=== PATIENT | male | born 1960 | race Caucasian/White ===

== ENCOUNTER → 2023-09-25 13:49 | Outpatient (REF) | payer OTHER, SELFPAY | LOC: HWRAD 13:49 | PROVIDERS: ATTENDING PHYSICIAN Family Medicine | DX: R35.0 Frequency of micturition (principal) | CPT/HCPCS: 76770 ==

== ENCOUNTER 2023-10-07 02:52 | Emergency (ER) | payer OTHER, SELFPAY ==
[2023-10-07 02:54] VITALS: BP 132/78
[2023-10-07 02:58] VITALS: BMI 26.4
--- NOTE | 2023-10-07 03:01 | ED.GENMED ---
History of Present Illness
<Basilia Remy MD, Resident - Last Filed: 10/07/23 06:07>
General
Chief Complaint: Chest Pain
Time Seen by Provider: 10/07/23 02:57
History of Present Illness
History of Present Illness:
The patient is a 63 yo male with PMH of Anxiety, Celiac dz and GERD presents to ED with chest discomfort. He reported he had this pain about 2 hours ago. He felt this pain when he woke up for bathroom. Reports also feeling some palpitations and
sweating with the pain. He describes his pain as a crunching pain on his sternum and upper abdominal area. Denies radiating pain to his chest, shoulder or back. Also reports some SOB, and feels like he can't get a full breath in. Reports feeling
some lightheaded. Denies syncope, diaphoresis, fever, vomiting, diarrhea, constipation and urinary changes.
Past History
ED Past Medical History: Asthma, GERD, Psychiatric (Nervousness anxiety, panic disorder) and Other (Ischemic colitis); Negative CAD, HTN, Hypercholesterolemia, IDDM, NIDDM or NV
ED Past Surgical History: Appendectomy and Orthopedic; Negative Cardiac
Social History
Tobacco: Non-smoker
Alcohol: Occasional
Drug: None
Personal:
Living: with family
Employment: Employed
Family History
Family History: Negative Early CAD or CAD
If applicable-neuro sx onset
Date of onset of symptoms: 10/07/23
Past History
<Basilia Remy MD, Resident - Last Filed: 10/07/23 06:07>
Past History
ED Past Medical History: Asthma, GERD, Psychiatric (Nervousness anxiety, panic disorder) and Other (Ischemic colitis); Negative CAD, HTN, Hypercholesterolemia, IDDM, NIDDM or NV
ED Past Surgical History: Appendectomy and Orthopedic; Negative Cardiac
Social History
Tobacco: Non-smoker
Alcohol: Occasional
Drug: None
Personal:
Living: with family
Employment: Employed
Family History
Family History: Negative Early CAD or CAD
Phy Exam
<Basilia Remy MD, Resident - Last Filed: 10/07/23 06:07>
General Physical Exam
General Presentation: moderate distress
General age: appears stated age
General Skin: warm
General Mental: alert
General Hydration: appears well hydrated
Cardiovascular Exam
Cardiovascular Exam: regular rate/rhythm, no edema and bradycardia
Pulmonary Exam
Pulmonary Exam: lungs clear, chest non tender, no crackles, no stridor and no wheezing
Gastrointestinal Exam
Gastrointestinal Exam: non distended and tender
Palpation: left upper quadrant: Minimal tenderness (Pain around sternum which radiating down) and right upper quadrant: Minimal tenderness (Pain around sternum which radiating down)
Neurological Exam
Neurological Exam: alert, oriented x3 and no motor deficits
Scores
<Basilia Remy MD, Resident - Last Filed: 10/07/23 06:07>
Heart Score for Chest Pain Patients
Age: >45 - <65 years
Risk Factors: No Risk Factors
Troponin: </= Normal Limit
Heart Score for Chest Pain Patients: 1
Heart Score Risk: 2.5% MACE over next 6 weeks
<Madison Goldman DO - Last Filed: 10/07/23 06:07>
Heart Score for Chest Pain Patients
STEMI patient?: No
History: Slightly or Non-Suspicious
ECG: Normal
Age: >45 - <65 years
Risk Factors: No Risk Factors
Troponin: </= Normal Limit
Heart Score for Chest Pain Patients: 1
Heart Score Risk: 2.5% MACE over next 6 weeks
Course
<Basilia Remy MD, Resident - Last Filed: 10/07/23 06:07>
Orders/Labs/Results
Orders:
Orders
10/07/23 02:55
Electrocardiogram (*1) Urgent
Reason for Study: Chest Pain
EKG- Treatment ONCE
10/07/23 03:03
CMP [Comprehensive Metabolic Panel] Urgent
Complete Blood Count/With Diff Urgent
Lipase Urgent
Comment: ADD ON
Troponin I Urgent
10/07/23 03:05
Add On- LAB Urgent
Tests Added?: Lipase
10/07/23 03:21
Famotidine [Pepcid] 20 mg PO NOW STA
10/07/23 03:56
Abdominal Ltd US [US Abdomen Limited] Urgent
Comment:
Reason For Exam: Epigastric pain
10/07/23 04:08
EKG- Treatment ONCE
10/07/23 04:30
Electrocardiogram (*1) Urgent
Reason for Study: Chest Pain
10/07/23 05:03
Troponin I Urgent
Abnormal Lab Results
10/07/23
03:03
RBC 4.68 L 10^6/uL
(4.70-6.10)
Absolute Monos (auto) 0.7 H 10^3/uL
(0.1-0.6)
Monocytes % 10.2 H %
(1.7-9.3)
Eosinophils % 6.2 H %
(0-6)
Glucose 109 H mg/dl
(70-99)
10/07/23 03:03
10/07/23 03:03
Vital Signs
Initial and Last Documented VS:
Initial Vital Signs
Temp Pulse Resp BP Pulse Ox
97.4 F 62 22 132/78 98
10/07/23 02:54 10/07/23 02:54 10/07/23 02:54 10/07/23 02:54 10/07/23 02:54
Last Documented Vital Signs
Temp Pulse Resp BP Pulse Ox
97.4 F 52 18 130/82 96
10/07/23 02:54 10/07/23 04:00 10/07/23 05:23 10/07/23 05:00 10/07/23 05:23
<Madison Goldman, DO - Last Filed: 10/07/23 06:07>
Orders/Labs/Results
Orders:
Orders
10/07/23 02:55
Electrocardiogram (*1) Urgent
Reason for Study: Chest Pain
EKG- Treatment ONCE
10/07/23 03:03
CMP [Comprehensive Metabolic Panel] Urgent
Complete Blood Count/With Diff Urgent
Lipase Urgent
Comment: ADD ON
Troponin I Urgent
10/07/23 03:05
Add On- LAB Urgent
Tests Added?: Lipase
10/07/23 03:21
Famotidine [Pepcid] 20 mg PO NOW STA
10/07/23 03:56
Abdominal Ltd US [US Abdomen Limited] Urgent
Comment:
Reason For Exam: Epigastric pain
10/07/23 04:08
EKG- Treatment ONCE
10/07/23 04:30
Electrocardiogram (*1) Urgent
Reason for Study: Chest Pain
10/07/23 05:03
Troponin I Urgent
Abnormal Lab Results
10/07/23
03:03
RBC 4.68 L 10^6/uL
(4.70-6.10)
Absolute Monos (auto) 0.7 H 10^3/uL
(0.1-0.6)
Monocytes % 10.2 H %
(1.7-9.3)
Eosinophils % 6.2 H %
(0-6)
Glucose 109 H mg/dl
(70-99)
10/07/23 03:03
10/07/23 03:03
Vital Signs
Initial and Last Documented VS:
Initial Vital Signs
Temp Pulse Resp BP Pulse Ox
97.4 F 62 22 132/78 98
10/07/23 02:54 10/07/23 02:54 10/07/23 02:54 10/07/23 02:54 10/07/23 02:54
Last Documented Vital Signs
Temp Pulse Resp BP Pulse Ox
97.4 F 52 18 130/82 96
10/07/23 02:54 10/07/23 04:00 10/07/23 05:23 10/07/23 05:00 10/07/23 05:23
<Basilia Remy MD, Resident - Last Filed: 10/07/23 06:07>
MDM/Problems Addressed
Differential Diagnosis Includes:
NV, GERD, Gastroenteritis, IBD, Musculoskeletal pain
MDM/Problems Addressed:
ECG, Troponin, CBC, CMP results are unremarkable. Abdominal US was ordered. Patient was given famotidine to address for possible GERD.
Abdominal US: Showed cholelithiasis without cholangitis. The patient was recommended to follow up with a General Surgery physician to address his cholelithiasis.
<Madison Goldman DO - Last Filed: 10/07/23 06:07>
*Radiology
Radiology exam reviewed: radiology read reviewed
*Pulse Oximetry
Patient hypoxic: no
*EKG
Interpreted by ED Provider?: Yes
Interpretation: normal
Comparison EKG: no changes
Rate: normal
Rhythm: sinus
[place]: normal axis
Interval: normal interval
QRS Pattern: normal QRS
Ischemia: no ischemia
*Bend Sorter Interpretation
Rate: normal
Interpretation: normal
Rhythm: sinus
*Critical Care Note
Total Time (30-74mins, 75-104mins- exclusive of procedures): Not Applicable
ED Attending Note
<Basilia Remy MD, Resident - Last Filed: 10/07/23 06:07>
-
Portions of this chart may have been created with voice recognition software.� Occasional wrong word or��sound alike� substitutions may have occurred due to the inherent limitations of voice recognition software.
<Madison Goldman DO - Last Filed: 10/07/23 06:07>
ED Attending Note
Patient seen and examined by attending physician: Yes
I performed the substantive portion of visit, reviewed & personally made and approve the management plan that is documented in note by myself or OFE.: Yes
I performed a history and physical exam of patient and discussed management with resident, I reviewed resident's note and agree with documented findings and plan of care.: Yes
ED Attending Note:
This is a 63-year-old gentleman who has history of celiac disease, GERD, anxiety who presents with somewhat abrupt onset of epigastric, lower substernal chest pain that began around 1:00 this morning after returning from the bathroom and lying down
in bed. Chest pain accompanied with mild nausea, diaphoresis and mild shortness of breath. He denies back pain or neck pain.
He does have history of GERD and admits that current symptoms feel somewhat similar to previous episodes of GERD and he has been evaluated in this ED on several different occasions for similar episodes of chest pain most recently November 2022. On
each occasion unremarkable ED evaluations including negative troponins, negative D-dimer.
He has undergone unremarkable nuclear stress test and echocardiogram January 2018. Unremarkable cardiac catheterization 2010.
During last ED visit November 2022 patient was prescribed a short course of Protonix and admits to resolution of chest pain without recurrence until tonight.
He did not take anything for symptoms at home.
Currently feeling markedly improved, no further chest discomfort but continues with mild epigastric discomfort.
He has not had a fever, no diarrhea nor constipation.
He does note recent issues with his prostate, nocturia, following with a urologist and admits that he has been limiting his oral intake due to nocturia. He was wondering if his current symptoms could be related to dehydration. He has had no
dizziness nor lightheadedness. No palpitations.
63-year-old gentleman appears his stated age, awake and alert, pleasant, appears in no acute distress.
Heart is regular rate and rhythm. No murmur no rub.
Lungs are clear to auscultation. Respirations are easy and nonlabored.
Abdomen is soft, nondistended, minimal tenderness epigastric region with deep palpation only.
Concern for GERD, gastritis, ACS, pancreatitis, other consideration is biliary colic/cholelithiasis.
EKG is similar and unchanged from previous.
Will check labs including LFTs, lipase, troponin.
Will consider abdominal ultrasound.
10/07/2023 0601 AM
Patient is pain-free and comfortable.
Repeat troponin is negative.
Repeat EKG unremarkable and unchanged from previous.
Ultrasound however shows a few gallstones, no evidence of cholecystitis. Normal wall, normal, bile duct.
I suspect patient's acute chest pain tonight especially with some epigastric tenderness on palpation is biliary colic in nature.
Labs are reassuring, no evidence of cholecystitis. And he is pain-free.
Discussed importance of low fat/nonfat diet. Will refer to general surgery for outpatient follow-up.
Return precautions discussed.
Discharge Plan
Departure
Patient Disposition: Home (Routine Discharge)
Patient with high blood pressure during this ER visit?: No
Condition: Good
Discharge Problem:
Cholelithiases
Instructions: Gallstones, Gallstones ED
Prescriptions:
No Action
tamsulosin [Flomax] 0.4 mg Capsule
0.4 mg PO DAILY
Referrals:
Carlos Enrique Traore MD [Active] - Call in 1-3 days for appt
Dustin Jimenez MD [Family Provider] -
Interventions
Interventions:
*Risk Screen - Suicide Last Done: 10/07/23 02:58
*General Assessment Last Done: 10/07/23 02:58
*Neglect/Abuse Screening Last Done: 10/07/23 02:58
ED- Fall Risk Assessment Last Done: 10/07/23 02:58
*ED COVID-19 Vaccine History Last Done: 10/07/23 02:58
ED- Cardiac Assessment Last Done: 10/07/23 02:58
Discharge Date and Time
Print Language: LUX[place]
[2023-10-07 03:03] VITALS: BP 138/79
[2023-10-07 03:11] LABS: % Basophils 0.9 % (0-2); % Eosinophils 6.2 % (0-6); % Immature Granulocytes 0.3 % (0-0.5); % Lymphocytes 35.7 % (20.5-51.1); % Monocytes 10.2 % (1.7-9.3); % Neutrophils 46.7 % (42.2-75.2); Absolute Basophils 0.1 10^3/uL (0-0.2); Absolute Eosinophils 0.4 10^3/uL (0-0.7); Absolute Lymphocytes 2.3 10^3/uL (1.2-3.4); Absolute Monocytes 0.7 10^3/uL (0.1-0.6); Hematocrit 39.7 % (39.0-52.0); Hemoglobin 14.1 g/dL (13.0-18.0); Mean Corp Hgb Conc. 35.5 g/dL (33.0-37.0); Mean Corpuscular Hgb 30.1 pg (27.0-31.0); Mean Corpuscular Volume 84.8 fL (80.0-94.0); Mean Platelet Volume 9.5 fL (7.4-10.4); Nucleated Red Blood Cells % 0 % (-); Platelet Count 247 10^3/uL (130-400); Red Blood Cell Count 4.68 10^6/uL (4.70-6.10); Red Cell Dist. Width 12.5 % (11.5-14.5); White Blood Cell Count 6.5 10^3/uL (4.8-10.8)
[2023-10-07] MEDS: PEPCID 20 MG PO (03:26)
[2023-10-07 03:28] LABS: ALT (SGPT) 19 U/L (0-50); AST (SGOT) 33 U/L (17-59); Albumin 4.4 g/dl (3.5-5.0); Alkaline Phosphatase 67 U/L (38-126); Blood Urea Nitrogen 14 mg/dl (9-20); Calcium 9.2 mg/dl (8.4-10.2); Carbon Dioxide 27 mmol/L (22-30); Chloride 105 mmol/L (98-107); Estimated Creatinine Clearance 65 ml/min; Glucose 109 mg/dl (70-99); Lipase 108 U/L (23-300); Potassium 4.2 mmol/L (3.5-5.1); Sodium 141 mmol/L (135-145); Total Bilirubin 0.6 mg/dl (0.2-1.3); Total Protein 6.7 g/dl (6.3-8.2); eGFR > 60.00
[2023-10-07 03:43] LABS: Troponin I < 0.012 ng/ml
[2023-10-07 04:00] VITALS: BP 130/75
[2023-10-07 05:00] VITALS: BP 130/82
[2023-10-07 05:50] LABS: Troponin I < 0.012 ng/ml
[2023-10-07 06:05] VITALS: BP 128/74
== END 2023-10-07 06:11 | disposition home or self-care (01) ==
LOC: EMR 02:52
PROVIDERS: EMERGENCY PHYSICIAN Emergency Medicine; FAMILY PHYSICIAN Family Medicine
DX: K80.20 Calculus of gallbladder without cholecystitis without obstruction (principal); K21.9 Gastro-esophageal reflux disease without esophagitis; F41.9 Anxiety disorder, unspecified
CPT/HCPCS: 99285; 76705; 80053; 83690; 84484; 85025; 93005

== ENCOUNTER 2023-12-08 06:47 | Day surgery (SDC) | payer OTHER, SELFPAY ==
[2023-11-25 09:38] VITALS: BMI 25.1
[2023-12-08] VITALS (11 sets, daily range): BP systolic 116–168; BP diastolic 63–78; BMI 25.1
[2023-12-08] MEDS: IC GREEN 2.5 MG IV (12:27)
[2023-12-08] MEDS: TYLENOL 1000 MG PO (12:34)
--- NOTE | 2023-12-08 14:22 | PTCARENOTE ---
Report given to Roya DOWNING at 1422.
--- NOTE | 2023-12-08 15:59 | OR.RPT ---
Operative Report
Operative Report
Primary Surgeon: Dontrell
Assisting: Natalie JOHNSON
Pre-op Diagnosis: Biliary colic
Post-op Diagnosis: Chronic cholecystitis
Procedure Performed: Robot assisted laparoscopic cholecystectomy
Anesthesia Type: GETA
Specimen / Cultures: Gallbladder
Estimated Blood Loss: 5cc
Complications: None immediate
Operative Findings: Floppy, softly distended gallbladder with mild surrounding fibrosis and thin omental adhesions
Date of Surgery:� 12/08/23
Indications: This 63M developed right upper quadrant pain. Work-up showed gallstones, normal liver enzymes and no ductal dilation. Laparoscopic cholecystectomy with robotic assist was elected.
Description of procedure: The patient was placed on the operating table in the supine position. General anesthesia was induced. A time-out was completed verifying correct patient, procedure, site, positioning, and special equipment prior to
beginning this procedure. An orogastric tube was placed. The abdomen was prepped and draped in the usual sterile fashion. A stab incision was made in left upper quadrant and the Veress needle was inserted. Proper position was confirmed by aspiration
and saline meniscus test. The abdomen was insufflated with carbon dioxide to a pressure of 12mmHg. The patient tolerated insufflation well.
A 8mm trocar was then inserted above the umbilicus. The laparoscope was inserted and the abdomen inspected. No injuries from initial trocar placement or Veress needle insertion were noted. Additional 8mm trocars were then inserted in the following
locations: two in the right lower quadrant and to the left of the umbilicus and just above. The abdomen was inspected and no abnormalities were found. The table was placed in the reverse Trendelenburg position with the right side up. The dome of the
gallbladder was grasped with an atraumatic grasper and retracted over the dome of the liver. Thin omental adhesions were carefully taken down with blunt dissection and hook cautery. The infundibulum was then grasped with an atraumatic grasper and
retracted toward the right lower quadrant. This maneuver exposed Calot�s triangle. The peritoneum overlying the gallbladder infundibulum was then incised and the cystic duct and cystic artery identified and circumferentially dissected so that a
clear view of the liver was achieved through a window between the cystic duct an cystic artery. At this time, the only two structures going into the gallbladder were the cystic artery and cystic duct. The CBD was identified with ICG and protected.
The cystic duct was then doubly clipped and divided. The cystic artery was controlled with bipolar and divided. The gallbladder was then dissected from its peritoneal attachments by electrocautery. The gallbladder was removed using an endoscopic
retrieval bag placed through the umbilical port. The gallbladder was passed off the table as a specimen. The gallbladder fossa was closely inspected. There was no evidence of bleeding from the gallbladder fossa or cystic artery or leakage of the
bile from the cystic duct stump. The umbilical trocar site was closed at the fascial level with 2-0 PDS. Secondary trocars were removed under direct vision and noted to be hemostatic. The abdomen was allowed to collapse. The skin was closed with
subcuticular sutures of 4-0 monocryl and topical skin adhesive. The orogastric tube was removed.
The patient tolerated the procedure well and was taken to the postanesthesia care unit in stable condition.
The assistance of Natalie JOHNSON was required due to the complexity of the procedure. During the procedure she assisted with retraction, resection, and closure of the wound.
[2023-12-08] MEDS: DILAUDID 0.25 MG IV ×2 (16:33→16:58)
[2023-12-08] MEDS: ZOFRAN 4 MG IV (18:06)
== END 2023-12-08 19:15 | disposition home or self-care (01) ==
LOC: SDS 06:47
PROVIDERS: ATTENDING PHYSICIAN Surgery; FAMILY PHYSICIAN Family Medicine
DX: K80.10 Calculus of gallbladder with chronic cholecystitis without obstruction (principal); K90.0 Celiac disease
CPT/HCPCS: 47562; 88304; 93005

== ENCOUNTER 2023-12-12 15:41 | Emergency (ER) | payer OTHER, SELFPAY ==
[2023-12-12 15:44] VITALS: BP 159/81
[2023-12-12 16:07] LABS: % Basophils 0.5 % (0-2); % Eosinophils 2.3 % (0-6); % Immature Granulocytes 0.3 % (0-0.5); % Lymphocytes 28.8 % (20.5-51.1); % Monocytes 9.9 % (1.7-9.3); % Neutrophils 58.2 % (42.2-75.2); Absolute Eosinophils 0.2 10^3/uL (0-0.7); Absolute Lymphocytes 2.1 10^3/uL (1.2-3.4); Absolute Monocytes 0.7 10^3/uL (0.1-0.6); Absolute Neutrophils 4.2 10^3/uL (1.4-6.5); Hematocrit 39.9 % (39.0-52.0); Hemoglobin 14.3 g/dL (13.0-18.0); Mean Corp Hgb Conc. 35.8 g/dL (33.0-37.0); Mean Corpuscular Hgb 29.5 pg (27.0-31.0); Mean Corpuscular Volume 82.4 fL (80.0-94.0); Mean Platelet Volume 9.3 fL (7.4-10.4); Nucleated Red Blood Cells % 0 % (-); Platelet Count 302 10^3/uL (130-400); Red Blood Cell Count 4.84 10^6/uL (4.70-6.10); White Blood Cell Count 7.3 10^3/uL (4.8-10.8)
[2023-12-12 16:18] LABS: ALT (SGPT) 25 U/L (0-50); AST (SGOT) 31 U/L (17-59); Albumin 4.5 g/dl (3.5-5.0); Alkaline Phosphatase 64 U/L (38-126); Blood Urea Nitrogen 16 mg/dl (9-20); Calcium 9.2 mg/dl (8.4-10.2); Carbon Dioxide 25 mmol/L (22-30); Chloride 105 mmol/L (98-107); Glucose 113 mg/dl (70-99); Potassium 3.8 mmol/L (3.5-5.1); Sodium 143 mmol/L (135-145); Total Bilirubin 0.6 mg/dl (0.2-1.3); Total Protein 7.1 g/dl (6.3-8.2); eGFR > 60.00
[2023-12-12 17:40] VITALS: BP 126/80
[2023-12-12 18:00] VITALS: BP 141/82
[2023-12-12] MEDS: NSS 1000 IV (18:42)
--- NOTE | 2023-12-12 18:47 | ED.GENMED ---
History of Present Illness
General
Chief Complaint: Abdominal Symptoms
Time Seen by Provider: 12/12/23 17:34
History of Present Illness
History of Present Illness:
63-year-old male status post cholecystectomy 5 days ago presenting for lightheadedness and fatigue. Patient reports uncomplicated postop course. Since surgery, has been feeling generally weak and fatigued. He took a mile walk today and generally
felt unwell. Denies associate abdominal pain. Denies vomiting. Denies changes in urination. Denies fever. Denies chest pain or difficulty breathing. Denies any fall or syncope. Denies additional acute medical complaints
Past History
Past History
ED Past Medical History: Asthma, GERD, Psychiatric (Nervousness anxiety, panic disorder) and Other (Ischemic colitis); Negative CAD, HTN, Hypercholesterolemia, IDDM, NIDDM or [place]
ED Past Surgical History: Appendectomy and Orthopedic; Negative Cardiac
Social History
Tobacco: Non-smoker
Alcohol: Occasional
Drug: None
Personal:
Living: with family
Employment: Employed
Family History
Family History: Negative Early CAD or CAD
Phy Exam
Physical Exam
Physical Exam:
General: Well-appearing, no clinical signs of dehydration, nontoxic and in no acute distress
HEENT: protecting airway
Neck: appears supple
CV: Normal heart rate, regular rhythm
Resp: No accessory muscle use, no increased work of breathing
Abd: Soft and non-distended, no tenderness to palpation, healing surgical scars, clean/dry/intact
Extremities: No deformities, no swelling, no erythema
Neuro: alert, no focal neurologic deficit
: deferred
Rectal: deferred
Psych: Normal affect
Skin: Intact
Course
Orders/Labs/Results
Orders:
Orders
12/12/23 15:52
Complete Blood Count/With Diff Urgent
Comprehensive Metabolic Panel Urgent
12/12/23 18:17
0.9% Sodium Chloride 1000 ml [Nss] 1,000 ml IV BOLUS
12/12/23 18:41
COVID-19 Antigen Urgent
Source: Nasal Swab
Urinalysis Reflex To Culture Urgent
Date Specimen was Collected: 12/12/23
Time Specimen was Collected: 18:32
Abnormal Lab Results
12/12/23
15:52
Absolute Monos (auto) 0.7 H 10^3/uL
(0.1-0.6)
Monocytes % 9.9 H %
(1.7-9.3)
Glucose 113 H mg/dl
(70-99)
12/12/23 15:52
12/12/23 15:52
Vital Signs
Initial and Last Documented VS:
Initial Vital Signs
Temp Pulse Resp BP Pulse Ox
98 F 69 18 159/81 97
12/12/23 15:44 12/12/23 15:44 12/12/23 15:44 12/12/23 15:44 12/12/23 15:44
Last Documented Vital Signs
Temp Pulse Resp BP Pulse Ox
98 F 66 16 138/86 100
12/12/23 15:44 12/12/23 20:00 12/12/23 20:00 12/12/23 20:00 12/12/23 19:45
MDM/Problems Addressed
MDM/Problems Addressed:
63-year-old male presenting status post cholecystectomy on Friday with generalized weakness and fatigue. Vital signs are normal.
On exam patient is well-appearing, no acute distress, nontoxic. Overall benign examination, patient is nontoxic in appearance. No clinical signs of severe dehydration. Abdominal exam without focal tenderness, soft and nondistended, healing
incisions. Suspect some mild deconditioning from recent surgical procedure. Lower suspicion for systemic process. Patient had screening laboratory analysis prior to my assessment, normal, no leukocytosis. Will also send a COVID swab and a
urinalysis. Will administer IV fluids in the setting of mild dehydration.
20:40 - COVID-negative and urine without sign of infection. On reassessment patient remains stable. Feel stable for discharge. Return precautions discussed and patient verbalized understanding
*Critical Care Note
Total Time (30-74mins, 75-104mins- exclusive of procedures): Not Applicable
ED Attending Note
-
Portions of this chart may have been created with voice recognition software.� Occasional wrong word or��sound alike� substitutions may have occurred due to the inherent limitations of voice recognition software.
Discharge Plan
Departure
Prescriptions:
No Action
ibuprofen [Advil] 200 mg Tablet
200 mg PO Q6H PRN (Reason: headache)
oxycodone-acetaminophen [oxycodone-acetaminophen] 5-325 mg tablet
1 - 2 tab PO Q4HPRN PRN (Reason: moderate to severe pain) Qty: 12 0RF
Referrals:
Dustin Jimenez MD [Family Provider] -
Interventions
Interventions:
*Risk Screen - Suicide Last Done: 12/12/23 15:44
*General Assessment Last Done: 12/12/23 15:44
*Neglect/Abuse Screening Last Done: 12/12/23 15:44
*ED COVID-19 Vaccine History Last Done: 12/12/23 18:46
DT-[id number]-Xpaqyqfdeo Assessment Last Done: 12/12/23 18:02
Discharge Date and Time
Print Language: ARMEN[place]
[2023-12-12 19:00] VITALS: BP 139/81
[2023-12-12 19:00] LABS: Urine Albumin Negative (Neg - Trace); Urine Bilirubin Negative (Negative); Urine Character Clear (Clear); Urine Color Yellow; Urine Glucose Negative (Negative); Urine Ketone Negative (Negative); Urine Leukocyte Negative (Negative); Urine Nitrite Negative (Negative); Urine Occult Blood Negative (Negative); Urine Urobilinogen Negative (Neg - 1+)
[2023-12-12 19:14] LABS: COVID-19 Antigen Negative (Negative)
[2023-12-12 20:00] VITALS: BP 138/86
[2023-12-12 20:57] VITALS: BP 126/82
== END 2023-12-12 21:09 | disposition home or self-care (01) ==
LOC: EMR 15:41
PROVIDERS: Student in an Organized Health Care Education/Training Program; EMERGENCY PHYSICIAN Student in an Organized Health Care Education/Training Program; FAMILY PHYSICIAN Family Medicine
DX: R42 Dizziness and giddiness (principal); R53.1 Weakness; R53.83 Other fatigue; E86.0 Dehydration; Z11.52 Encounter for screening for COVID-19; K21.9 Gastro-esophageal reflux disease without esophagitis; J45.909 Unspecified asthma, uncomplicated; F41.9 Anxiety disorder, unspecified; F41.0 Panic disorder [episodic paroxysmal anxiety]; K55.9 Vascular disorder of intestine, unspecified; Z90.49 Acquired absence of other specified parts of digestive tract; Z98.890 Other specified postprocedural states
CPT/HCPCS: 99284; 96360; 80053; 81003; 85025; 87811

== ENCOUNTER → 2024-01-16 09:00 | Outpatient (REF) | payer OTHER, SELFPAY | LOC: MRI 09:00 | PROVIDERS: ATTENDING PHYSICIAN Surgery; FAMILY PHYSICIAN Family Medicine | DX: K80.50 Calculus of bile duct without cholangitis or cholecystitis without obstruction (principal) | CPT/HCPCS: 74181 ==

== ENCOUNTER → 2024-02-24 12:10 | Outpatient (REF) | payer OTHER, SELFPAY | LOC: HWRAD 12:10 | PROVIDERS: ATTENDING PHYSICIAN Family Medicine | DX: M54.6 Pain in thoracic spine (principal); R68.89 Other general symptoms and signs | CPT/HCPCS: 71046 ==

== ENCOUNTER 2024-02-28 09:57 | Emergency (ER) | payer OTHER, SELFPAY ==
[2024-02-28 10:01] VITALS: BP 152/87
[2024-02-28 10:33] LABS: % Basophils 0.7 % (0-2); % Eosinophils 3.4 % (0-6); % Immature Granulocytes 0.9 % (0-0.5); % Lymphocytes 22.2 % (20.5-51.1); % Monocytes 8.8 % (1.7-9.3); Absolute Eosinophils 0.2 10^3/uL (0-0.7); Absolute Immature Granulocytes 0.1 10^3/uL (0-0.05); Absolute Lymphocytes 1.3 10^3/uL (1.2-3.4); Absolute Monocytes 0.5 10^3/uL (0.1-0.6); Absolute Neutrophils 3.7 10^3/uL (1.4-6.5); Hematocrit 41.7 % (39.0-52.0); Hemoglobin 14.4 g/dL (13.0-18.0); Mean Corp Hgb Conc. 34.5 g/dL (33.0-37.0); Mean Corpuscular Volume 86.9 fL (80.0-94.0); Mean Platelet Volume 9.5 fL (7.4-10.4); Nucleated Red Blood Cells % 0 % (-); Platelet Count 259 10^3/uL (130-400); Red Cell Dist. Width 12.1 % (11.5-14.5); White Blood Cell Count 5.8 10^3/uL (4.8-10.8)
[2024-02-28 10:47] LABS: ALT (SGPT) 17 U/L (0-50); AST (SGOT) 26 U/L (17-59); Albumin 4.4 g/dl (3.5-5.0); Alkaline Phosphatase 71 U/L (38-126); Blood Urea Nitrogen 13 mg/dl (9-20); Calcium 9.1 mg/dl (8.4-10.2); Carbon Dioxide 25 mmol/L (22-30); Chloride 105 mmol/L (98-107); Glucose 110 mg/dl (70-99); Potassium 4.6 mmol/L (3.5-5.1); Sodium 141 mmol/L (135-145); Total Bilirubin 1.1 mg/dl (0.2-1.3); Total Protein 6.9 g/dl (6.3-8.2); eGFR > 60.00
[2024-02-28 11:16] LABS: Troponin I < 0.012 ng/ml
--- NOTE | 2024-02-28 12:26 | ED.GENMED ---
History of Present Illness
<Kiersten Frederick PA-C - Last Filed: 02/28/24 22:14>
General
Chief Complaint: Breathing Problem
Source: patient
Exam Limitations: none
Time Seen by Provider: 02/28/24 11:58
Nursing documentation reviewed up to this point in time: agreed with
History of Present Illness
History of Present Illness:
Patient is a 63-year-old male presenting to the emergency department for evaluation of ongoing fatigue and elevated D-dimer on outpatient lab work. Patient states that he has had worsening fatigue and dyspnea on exertion over the past few months.
However�he does feel yesterday it was worse and he was having a lot of shortness of breath with walking upstairs. He was unable to complete his workout. Patient states he has been very lightheaded, as well. Patient has been following with his
primary care provider regarding the symptoms and was found to have a 'borderline' D-dimer recommended to have a CT scan of his chest to rule out a pulmonary embolism.
Patient denies any fevers, cough, or chest pain. Patient denies any abdominal pain, back pain, numbness/tingling. Patient denies any urinary symptoms.
Of note�patient states the symptoms seem to start after he had his gallbladder removed in November with Dr. Jon. He has had a follow-up MRI with general surgery in December which showed no complications.
Past History
<Kiersten Frederick PA-C - Last Filed: 02/28/24 22:14>
Past History
ED Past Medical History: Asthma, GERD, Psychiatric (Nervousness anxiety, panic disorder) and Other (Ischemic colitis); Negative CAD, HTN, Hypercholesterolemia, IDDM, NIDDM or [place]
ED Past Surgical History: Appendectomy and Orthopedic; Negative Cardiac
Social History
Tobacco: Non-smoker
Alcohol: Occasional
Drug: None
Personal:
Living: with family
Employment: Employed
Family History
Family History: Negative Early CAD or CAD
Review of Systems
<Kiersten Frederick PA-C - Last Filed: 02/28/24 22:14>
Review of Systems
Allergies reviewed?: Yes
All Other Systems: ROS reviewed and negative except as documented in HPI and ROS
Phy Exam
<Kiersten Frederick PA-C - Last Filed: 02/28/24 22:14>
Physical Exam
Physical Exam:
Vitals: Hypertensive on arrival although improved by my assessment. Afebrile
General: Patient is well appearing, no acute distress. Nontoxic appearing
Skin: Warm and dry, no rashes or lesions
Head: Normocephalic, atraumatic
Eyes: Sclera nonicteric. EOMs intact. No nystagmus.
Throat: Protecting airway
Neck: Normal ROM, no cervical spine tenderness, no meningismus
Cardiac: Regular rate and rhythm, no murmurs.
Pulm: Normal respiratory effort, no wheezes, rales, rhonchi heard on exam. O2 saturation 100 on room air
Abdomen: Abdomen soft. No abdominal tenderness.
Extremities: No evidence of cyanosis or edema. Negative Homans' sign bilaterally.
Neuro: AAOx3. Grossly intact.
Psychiatric: Normal affect.
Scores
<Kiersten Frederick PA-C - Last Filed: 02/28/24 22:14>
Heart Failure Risk
Heart Failure Risk Score: Not Applicable
Course
<Kiersten Frederick PA-C - Last Filed: 02/28/24 22:14>
Orders/Labs/Results
Orders:
Orders
02/28/24 10:06
ECG [Electrocardiogram (*1)] Urgent
Reason for Study: Shortness of Breath
CT Chest PE Study Urgent
Comment:
Reason For Exam: SOB, dizziness
02/28/24 10:07
EKG- Treatment ONCE
02/28/24 10:24
Complete Blood Count/With Diff Urgent
Comprehensive Metabolic Panel Urgent
Monotest Urgent
Comment: ADD ON
Troponin I Urgent
02/28/24 13:14
Add On- LAB Urgent
Tests Added?: pro-bnp
Orthostatic VS- Treatment ONCE
02/28/24 13:26
NT-proBNP Urgent
Comment: ADD ON
Troponin I Urgent
Urinalysis Reflex To Culture Urgent
Date Specimen was Collected: 02/28/24
Time Specimen was Collected: 13:24
02/28/24 14:40
Add On- LAB Urgent
Tests Added?: monospot
02/28/24 14:49
COVID-19 Antigen Urgent
Source: Nasal Swab
Influenza A+B Rapid Molecular Urgent
CARLOS MANUEL Source: Nasal Swab
Specimen Description:
Abnormal Lab Results
02/28/24
10:24
Abs Immat Gran (auto) 0.1 H 10^3/uL
(0-0.05)
Immature Gran % 0.9 H %
(0-0.5)
Glucose 110 H mg/dl
(70-99)
Monoscreen Positive A
(Negative)
02/28/24 10:24
02/28/24 10:24
Vital Signs
Initial and Last Documented VS:
Initial Vital Signs
Temp Pulse Resp BP Pulse Ox
97.6 F 66 20 152/87 100
02/28/24 10:01 02/28/24 10:01 02/28/24 10:01 02/28/24 10:01 02/28/24 10:01
Last Documented Vital Signs
Temp Pulse Resp BP Pulse Ox
97.6 F 63 18 105/71 100
02/28/24 10:01 02/28/24 13:15 02/28/24 13:15 02/28/24 13:15 02/28/24 13:15
<Ellis Tejeda MD - Last Filed: 02/28/24 14:44>
Orders/Labs/Results
Orders:
Orders
02/28/24 10:06
ECG [Electrocardiogram (*1)] Urgent
Reason for Study: Shortness of Breath
CT Chest PE Study Urgent
Comment:
Reason For Exam: SOB, dizziness
02/28/24 10:07
EKG- Treatment ONCE
02/28/24 10:24
Complete Blood Count/With Diff Urgent
Comprehensive Metabolic Panel Urgent
Monotest Urgent
Comment: ADD ON
Troponin I Urgent
02/28/24 13:14
Add On- LAB Urgent
Tests Added?: pro-bnp
Orthostatic VS- Treatment ONCE
02/28/24 13:26
NT-proBNP Urgent
Comment: ADD ON
Troponin I Urgent
Urinalysis Reflex To Culture Urgent
Date Specimen was Collected: 02/28/24
Time Specimen was Collected: 13:24
02/28/24 14:40
Add On- LAB Urgent
Tests Added?: monospot
02/28/24 14:49
COVID-19 Antigen Urgent
Source: Nasal Swab
Influenza A+B Rapid Molecular Urgent
CARLOS MANUEL Source: Nasal Swab
Specimen Description:
Abnormal Lab Results
02/28/24
10:24
Abs Immat Gran (auto) 0.1 H 10^3/uL
(0-0.05)
Immature Gran % 0.9 H %
(0-0.5)
Glucose 110 H mg/dl
(70-99)
Monoscreen Positive A
(Negative)
02/28/24 10:24
02/28/24 10:24
Vital Signs
Initial and Last Documented VS:
Initial Vital Signs
Temp Pulse Resp BP Pulse Ox
97.6 F 66 20 152/87 100
02/28/24 10:01 02/28/24 10:01 02/28/24 10:01 02/28/24 10:01 02/28/24 10:01
Last Documented Vital Signs
Temp Pulse Resp BP Pulse Ox
97.6 F 63 18 105/71 100
02/28/24 10:01 02/28/24 13:15 02/28/24 13:15 02/28/24 13:15 02/28/24 13:15
<Kiersten Frederick PA-C - Last Filed: 02/28/24 22:14>
MDM/Problems Addressed
Differential Diagnosis Includes:
Not limited to: Dehydration, viral illness, postoperative complication, pulmonary embolism, pneumonia, pleural effusion, congestive heart failure, acute coronary syndrome, etc.
MDM/Problems Addressed:
63-year-old male presenting with few weeks of fatigue and worsening dyspnea. Did have cholecystectomy a few months ago. No history of fevers, chest pain, cough. Outpatient lab work showed elevated dimer and sent to rule out PE. On exam�patient
is well-appearing, no apparent distress. He is stable vital signs and is afebrile. Heart regular rate and rhythm. Lungs are clear bilaterally. No clinical evidence of DVT on exam. Abdomen soft and nontender. No focal neurologic deficits. Labs
initiated in triage without any clinically significant abnormalities. Troponin is undetectable. EKG shows normal sinus rhythm without any acute ischemic changes. Differential somewhat broad although given elevated dimer will check CTA chest to
rule out pulmonary embolism. Will add on proBNP and trend troponin.
Update: Urine without any signs of infection. Repeat troponin undetectable�very low suspicion for acute coronary syndrome. proBNP of less than 20. CT chest without any acute abnormalities. Patient very well-appearing, no apparent distress. Will
add on viral swabs flu, COVID, and mono. Low suspicion for emergent cardio/pulmonary process. Feel patient is stable for discharge with primary care follow-up. Very close return precautions discussed.
Chronic conditions affecting care:
N/A
Acute Exacerbation and/or Progression of Chronic Illness:
N/A
<Kiersten Frederick PA-C - Last Filed: 02/28/24 22:14>
*Radiology
Radiology exam reviewed: preliminary read by ED provider (Reviewed by -page shaver PE) and radiology read reviewed
*Pulse Oximetry
Patient hypoxic: no
*EKG
Interpreted by ED Provider?: Yes
EKG Intrepretation Date: 02/28/24
Interpretation: normal
Comparison EKG: changes noted
Heart Rate: 62
Rate: normal
Rhythm: sinus
[place]: normal axis
Interval: normal interval
QRS Pattern: normal QRS
Ischemia: no ischemia
*Systems Programmer Analyst Interpretation
Rate: Systems Programmer Analyst- N/A
*Critical Care Note
Total Time (30-74mins, 75-104mins- exclusive of procedures): Not Applicable
<Kiersten Frederick PA-C - Last Filed: 02/28/24 22:14>
Update Note
Update Note:
Update: Monotest positive. Did call discussed with patient. Advise follow-up with primary care, supportive care. Avoid contact sports. Patient expressed understanding will follow close with PCP
ED Attending Note
<Kiersten Frederick PA-C - Last Filed: 02/28/24 22:14>
-
Portions of this chart may have been created with voice recognition software.� Occasional wrong word or��sound alike� substitutions may have occurred due to the inherent limitations of voice recognition software.
<Ellis Tejeda MD - Last Filed: 02/28/24 14:44>
ED Attending Note
Patient seen and examined by attending physician: Yes
ED Attending Note:
I have seen and evaluated the patient with a [id number] encounter. I have spoken to the advance practicer provider and involved in the medical history, the physical exam, medical decision making.
Evaluation and management service: agree unless noted differently below.
Results interpretation: agree unless noted differently below.
Focused HPI: 63-year-old male with history as documented presents to the emergency room for evaluation after outpatient labs showed slightly elevated D-dimer. Patient had surgery with Dr. Jon in November for cholecystitis. He says that he
initially had uncomplicated postoperative course for the past week or 2 but after about 2 weeks he started to have pain in his right flank/ribs. He says that he followed up with the surgeon initially was thought to be postoperative pain he at one
point had a follow-up MRI which was unremarkable. He says pain over the holidays faded a bit but he started to have increased fatigue. He says over the past week fatigue has been markedly increased and associated with mild dizziness. He says he
has some mild shortness of breath especially when he is very active. He says 'it almost feels like I have a virus.' He denies any chest pain. He denies any other complaints. He has been following along with his primary doctor and part of his
outpatient workup included a D-dimer which was elevated and so he was advised to go to the ER for follow-up.
Physical exam: 63-year-old well-appearing male in no acute distress. Hypertensive in triage normalized by my assessment rest of vitals normal. He has no cardiac rubs gallops or murmurs and his lungs are clear to auscultation bilaterally. He has
no JVD. He has no edema in his extremities. His extremities are warm and well-perfused.
Medical Decision Makin-year-old male presents for evaluation after outpatient testing showed positive D-dimer�she has been dealing with postoperative right flank pain which actually is improved recently; he is also dealing with very significant
fatigue for weeks over the past week this has increased and has been associated with some mild shortness of breath. Labs sent off here including a CBC and a CMP which were unremarkable. Troponin serially undetectable. proBNP completely negative.
Urinalysis negative. CTA chest negative for any acute pathology. EKG shows sinus rhythm. Low suspicion for emergent pathology at this point in time. He does admit he has been eating slightly less since his surgery I wonder if this could be
playing a factor, he may have over the past week developed a virus as well as he says this does feel similar over the past week to prior viral illnesses. He is already well established with his primary doctor and will continue to follow-up as an
outpatient.
Discharge Plan
Departure
Patient Disposition: Home (Routine Discharge)
Date of Disposition: 02/28/24
Time of Disposition: 14:41
Patient with high blood pressure during this ER visit?: No
Condition: Good
Covid-19: Not Applicable
Discharge Problem:
Fatigue, MANNING (dyspnea on exertion), Lightheadedness
Instructions: Fatigue (DC), Shortness of Breath (Dyspnea) (DC)
Prescriptions:
No Action
ibuprofen [Advil] 200 mg Tablet
200 mg PO Q6H PRN (Reason: headache)
oxycodone-acetaminophen [oxycodone-acetaminophen] 5-325 mg tablet
1 - 2 tab PO Q4HPRN PRN (Reason: moderate to severe pain) Qty: 12 0RF
Referrals:
Dustin Jimenez MD [Family Provider] -
Activity Restrictions/Additional Instructions:
RETURN TO THE EMERGENCY DEPARTMENT WITH ANY FEVERS, CHEST PAIN, WORSENING SHORTNESS OF BREATH, SIGNIFICANT WEAKNESS, SEVERE ABDOMINAL PAIN, WORSENING IN CURRENT SYMPTOMS, OR ANY OTHER CONCERNS
-As discussed�your CT scan performed in the emergency department showed no evidence of a blood clot or other acute abnormality in your chest.
-It is important stay well-hydrated. Get plenty of rest.
-We did send a few viral testing and we will contact you if these are positive
-Follow-up with your primary care provider for further evaluation/management
Monitor your symptoms closely and return to the emergency department any acute worsening/new symptoms or any other concerns.
Interventions
Interventions:
*Risk Screen - Suicide Last Done: 02/28/24 12:30
*General Assessment Last Done: 02/28/24 12:30
*Neglect/Abuse Screening Last Done: 02/28/24 12:30
ED- Fall Risk Assessment Last Done: 02/28/24 12:30
*ED COVID-19 Vaccine History Last Done: 02/28/24 12:30
*Nursing Disposition Last Done: 02/28/24 15:15
ED- Cardiac Assessment Last Done: 02/28/24 12:30
ED- Pulmonary Assessment Last Done: 02/28/24 12:30
Discharge Date and Time
Discharge Date/Time: 02/28/24 15:15
Print Language: CITIZEN OF [place]
[2024-02-28 13:15] VITALS: BP 105/71
[2024-02-28 13:48] LABS: Urine Albumin Trace (Neg - Trace); Urine Bilirubin Negative (Negative); Urine Character Clear (Clear); Urine Color Yellow; Urine Glucose Negative (Negative); Urine Ketone Negative (Negative); Urine Leukocyte Negative (Negative); Urine Nitrite Negative (Negative); Urine Occult Blood Negative (Negative); Urine Urobilinogen Negative (Neg - 1+)
[2024-02-28 14:00] VITALS: BP 128/78; BP 129/95; BP 133/72; PULSE 63; PULSE 67; PULSE 70
[2024-02-28 14:07] LABS: Troponin I < 0.012 ng/ml
[2024-02-28 14:25] LABS: NT-proBNP < 20.0 pg/ml
[2024-02-28 15:25] LABS: COVID-19 Antigen Negative (Negative)
[2024-02-28 15:30] LABS: Monotest Positive (Negative)
== END 2024-02-28 15:15 | disposition home or self-care (01) ==
LOC: EMR 09:57
PROVIDERS: Emergency Medicine; Physician Assistant; EMERGENCY PHYSICIAN Emergency Medicine; FAMILY PHYSICIAN Family Medicine
DX: R53.83 Other fatigue (principal); R06.09 Other forms of dyspnea; R42 Dizziness and giddiness; J45.909 Unspecified asthma, uncomplicated; K21.9 Gastro-esophageal reflux disease without esophagitis; F41.9 Anxiety disorder, unspecified; F41.0 Panic disorder [episodic paroxysmal anxiety]; Z90.49 Acquired absence of other specified parts of digestive tract
CPT/HCPCS: 99284; 71275; 80053; 81003; 83880; 84484; 85025; 86308; 87502; 87811; 93005; Q9967

== ENCOUNTER → 2024-08-06 11:46 | Outpatient (REF) | payer OTHER, SELFPAY | LOC: MRI 3T 11:46 | PROVIDERS: ATTENDING PHYSICIAN Specialist; FAMILY PHYSICIAN Family Medicine | DX: R97.20 Elevated prostate specific antigen [PSA] (principal) | CPT/HCPCS: 72197; A9575 ==

== ENCOUNTER 2024-11-10 15:11 | Emergency (ER) | payer OTHER, SELFPAY ==
[2024-11-10 15:21] VITALS: BP 128/95
--- NOTE | 2024-11-10 15:37 | EDRN ---
James VERDUZCO in room w/ pt.
[2024-11-10 15:59] VITALS: BP 138/91; BMI 27.0
[2024-11-10] MEDS: TYLENOL 650 MG PO (16:04)
--- NOTE | 2024-11-10 16:05 | ED.GENMED ---
History of Present Illness
General
Chief Complaint: Head Injury
Source: patient
Exam Limitations: none
Time Seen by Provider: 11/10/24 15:33
Nursing documentation reviewed up to this point in time: agreed with
History of Present Illness
History of Present Illness:
Patient is a 64-year-old male presenting to the emergency department following head injury today. Patient states he was walking off of the basketball court when a ball struck him on the right side of his head. He does not believe he lost
consciousness however this did not come to the ground. He presents with persistent headache and nausea throughout the day.
Patient denies any episodes of vomiting since injury. No changes in vision, dizziness or ataxia. He has not had any changes in his hearing. No weakness or numbness/tingling extremities. He does not have any significant neck pain.
Patient is not on any oral anticoagulation. He does have a history of concussions. He denies any other injury sustained.
Past History
Past History
ED Past Medical History: Asthma, GERD, Psychiatric (Nervousness anxiety, panic disorder) and Other (Ischemic colitis); Negative CAD, HTN, Hypercholesterolemia, IDDM, NIDDM or [place]
ED Past Surgical History: Appendectomy and Orthopedic; Negative Cardiac
Social History
Tobacco: Non-smoker
Alcohol: Occasional
Drug: None
Personal:
Living: with family
Employment: Employed
Family History
Family History: Negative Early CAD or CAD
Phy Exam
Physical Exam
Physical Exam:
Vitals: Patient's vital signs are stable. Afebrile
General: Patient is well appearing, no acute distress
Skin: Warm and dry, no rashes or lesions
Head: Normocephalic, atraumatic. No obvious evidence of trauma on exam
Eyes: Sclera nonicteric. Pupils equal round and reactive to light bilaterally. EOMs intact. No nystagmus.
Ears: Right external auditory canal patent with clear TM and visualize landmarks. No hemotympanums. Left external auditory canal with cerumen and unable to clearly visualize tympanic membrane
Throat: Protecting airway
Neck: Normal ROM, no cervical spine tenderness, mild reproducible tenderness along right paraspinal muscles in cervical region
Cardiac: Regular rate and rhythm, no murmurs.
Pulm: Normal respiratory effort, no wheezes, rales, rhonchi heard on exam
.
Abdomen: No abdominal tenderness.
Extremities: No evidence of cyanosis or edema. Strength 5/5 in bilateral upper and lower extremities
Neuro: AAOx3. CN II-XII grossly intact. No facial droop or asymmetry. Normal finger-nose. Sensation intact. No focal neurologic deficits.
Psychiatric: Normal affect.
Course
Orders/Labs/Results
Orders:
Orders
11/10/24 15:29
CT Head W/o Iv Contrast Urgent
Comment:
Reason For Exam: head struck with basketball
11/10/24 15:45
Acetaminophen [Tylenol] 650 mg PO NOW STA
Vital Signs
Initial and Last Documented VS:
Initial Vital Signs
Temp Pulse Resp BP Pulse Ox
98.0 F 58 18 128/95 99
11/10/24 15:21 11/10/24 15:21 11/10/24 15:21 11/10/24 15:21 11/10/24 15:21
Last Documented Vital Signs
Temp Pulse Resp BP Pulse Ox
98.0 F 61 16 125/70 97
11/10/24 15:21 11/10/24 17:04 11/10/24 17:04 11/10/24 17:04 11/10/24 17:04
MDM/Problems Addressed
Differential Diagnosis Includes:
Not limited to: Contusion, concussion, doubt skull fracture or intracerebral hemorrhage, etc.
MDM/Problems Addressed:
64-year-old male presenting with headache and nausea following head injury this morning. He was struck in the right side of the head by a basketball. No associated LOC. He has not had any vomiting, visual changes, dizziness, other neurological
symptoms. Vitals and physical exam as above.
No evidence of head or neck trauma on exam. He is well appearing without any focal neurologic deficits.
Relatively low suspicion for acute intracranial traumatic injury based on mechanism and appearance. However � will obtain CT scan of head for further evaluation. Do not feel cervical spine imaging indicated. Will give Tylenol and reassess.
Update: CT imaging without acute findings. Ultimately suspect concussion. Patient remains well appearing with no neurologic deficits. Feel stable for discharge home w/ supportive care, primary care follow-up. Strict return precautions discussed.
Patient comfortable with plan.
Chronic conditions affecting care:
N/A
Acute Exacerbation and/or Progression of Chronic Illness:
N/A
*Pulse Oximetry
SaO2: 97
Oxygen Mode of Delivery: Room air
Patient hypoxic: no
*EKG
Interpreted by ED Provider?: NA
*Apple Checker Interpretation
Rate: Apple Checker- N/A
*Critical Care Note
Total Time (30-74mins, 75-104mins- exclusive of procedures): Not Applicable
ED Attending Note
-
Portions of this chart may have been created with voice recognition software.� Occasional wrong word or��sound alike� substitutions may have occurred due to the inherent limitations of voice recognition software.
Discharge Plan
Departure
Patient Disposition: Home (Routine Discharge)
Date of Disposition: 11/10/24
Time of Disposition: 17:28
Patient with high blood pressure during this ER visit?: No
Condition: Good
Discharge Problem:
Concussion
Instructions: Concussion, Adult (DC)
Prescriptions:
No Action
ibuprofen [Advil] 200 mg Tablet
200 mg PO Q6H PRN (Reason: headache)
oxycodone-acetaminophen [oxycodone-acetaminophen] 5-325 mg tablet
1 - 2 tab PO Q4HPRN PRN (Reason: moderate to severe pain) Qty: 12 0RF
Referrals:
Dustin Jimenez MD [Family Provider, [facility]] - Follow up in 5-7 days
Activity Restrictions/Additional Instructions:
RETURN TO THE EMERGENCY DEPARTMENT WITH ANY SEVERE HEADACHE OR NECK PAIN, INTRACTABLE NAUSEA/VOMITING, VISUAL CHANGES, PERSISTENT DIZZINESS/LIGHTHEADEDNESS, CHANGES IN MENTAL STATUS, WORSENING IN CURRENT SYMPTOMS, OR ANY OTHER CONCERNS
- As discussed�your head CT showed no acute intracranial traumatic injuries. You likely sustained a mild concussion.
- Please treat symptoms supportively at home with Tylenol/Motrin as needed for headache. Is important stay well-hydrated and get plenty of rest.
- Follow-up with your primary care provider for further evaluation/management to ensure your symptoms are improving
Monitor your symptoms closely and return to the emergency department with any acute worsening/new symptoms or any other concerns
Interventions
Interventions:
*Risk Screen - Suicide Last Done: 11/10/24 15:21
*General Assessment Last Done: 11/10/24 15:21
*Neglect/Abuse Screening Last Done: 11/10/24 15:21
*ED- Fall Risk Assessment Last Done: 11/10/24 15:59
*ED COVID-19 Vaccine History Last Done: 11/10/24 15:21
*Nursing Disposition Last Done: 11/10/24 17:35
ED- Neurological Assessment Last Done: 11/10/24 16:03
ED-Skin Assessment Last Done: 11/10/24 16:03
Discharge Date and Time
Discharge Date/Time: 11/10/24 17:35
Print Language: TUNIS[place]
[2024-11-10 17:04] VITALS: BP 125/70
--- NOTE | 2024-11-10 17:25 | EDRN ---
James VERDUZCO in room w/ pt at this time.
== END 2024-11-10 17:35 | disposition home or self-care (01) ==
LOC: EMR 15:11
PROVIDERS: EMERGENCY PHYSICIAN Student in an Organized Health Care Education/Training Program; FAMILY PHYSICIAN Family Medicine
DX: S06.0X0A Concussion without loss of consciousness, initial encounter (principal); W21.05XA Struck by basketball, initial encounter; Y93.01 Activity, walking, marching and hiking; J45.909 Unspecified asthma, uncomplicated; Z90.49 Acquired absence of other specified parts of digestive tract
CPT/HCPCS: 99284; 70450